=== PATIENT | male | born 1990 | race Caucasian/White ===

== ENCOUNTER 2021-04-21 19:44 | Emergency (ER) | payer OTHER ==
[~2021-04-21] VITALS: Ht 188 cm; Wt 89.0 kg
== END 2021-04-21 21:47 | disposition home or self-care (01) ==
LOC: ED 19:44
DX: U07.1 COVID-19 (principal)
CPT/HCPCS: 71045; 99283-25

== ENCOUNTER 2022-03-17 20:48 | Emergency (ER) | payer OTHER ==
[~2022-03-17] VITALS: Ht 188 cm; Wt 86.0 kg
[2022-03-17] MEDS ORDERED: AMOX TR-K CLV1 EAC1 PO (22:01)
== END 2022-03-17 22:18 | disposition home or self-care (01) ==
LOC: ED 20:48
DX: S61.452A Open bite of left hand, initial encounter (principal); W54.0XXA Bitten by dog, initial encounter; Z23 Encounter for immunization
CPT/HCPCS: 90471; 90715; 99283-25

== ENCOUNTER 2022-08-17 23:08 | Emergency (ER) | payer OTHER ==
[~2022-08-17] VITALS: Ht 188 cm; Wt 85.7 kg
[~2022-08-17 23:08] MED LIST: AMOX TR-K CLV1 EAC1 PO
[2022-08-18] MEDS ORDERED: HYDROXYZINE HCL25 MG PO (00:44)
--- NOTE | 2022-08-20 19:20 | EKG ---
[facility] [address] [facility] [place] [address] Signed Normal sinus rhythm Normal ECG No previous ECGs available Confirmed by Sb Fry MD () on 08/20/2022 7:20:28 PM Electronically Signed By: SB FRY MD 08/20/221919 PATIENT NAME: BOGDAN NORIEGA Electrocardiogram DATE OF : 86 PHYSICIAN: SB FRY MD REPORT #: [id number] REPORT IS CONFIDENTIAL AND NOT TO BE RELEASED WITHOUT AUTHORIZATION
== END 2022-08-18 00:59 | disposition home or self-care (01) ==
LOC: ED 23:08
DX: T14.8XXA Other injury of unspecified body region, initial encounter (principal); F43.9 Reaction to severe stress, unspecified; X58.XXXA Exposure to other specified factors, initial encounter
CPT/HCPCS: 36415; 80053; 84484; 85025; 93005; 93010; 99283-25